=== PATIENT | male | born 1985 | race Caucasian/White ===

== ENCOUNTER 2020-06-11 19:07 | Emergency (ER) | payer OTHER ==
[~2020-06-11] VITALS: Ht 175.3 cm; Wt 129.5 kg
[2020-06-11 19:14] VITALS: BP 144/87
[2020-06-11] MEDS ORDERED: KETOROLAC 60 MG/2 ML VIAL. IM ONE (20:00)
[2020-06-11] MEDS ORDERED: ORPHENADRINE CITRATE 60 MG/2 ML VIAL. IM ONE (20:00)
--- NOTE | 2020-06-11 21:05 | RAD ---
CT lumbar spine without contrast. CT pelvis without contrast. PQRS statement: CT scans at this facility use dose reduction including either automated exposure cont rol, iterative reconstructions, and /or weight based radiation dosing via mA and kV modification when appropriate to reduce radiation dose to as low as reasonably achievable. HISTORY: Left low back pain, back injury. Lumbar spine findings: Lumbar vertebral body height and alignment intact. No fracture of the lumbar s pine. No spondylolysis defect. Paraspinal tissues unremarkable. Disc disease described below. T11-T12: Disc osteophyte with mild/moderate spinal canal stenosis. T12-L1: Unremarkable. L1-L2 through L3-L4: Unremarkable. L4-L5: Posterior disc height loss, disc osteophyte and large broad-based disc protrusion likely contr ibutes to severe spinal canal stenosis and left lateral recess stenosis, and severe left greater than right neural foraminal stenoses. L5-S1: Posterior disc height loss, vacuum disc, disc osteophyte, broad-based disc protrusion may cont ribute to spinal canal stenosis and left lateral recess stenosis. Moderate to severe neural foraminal stenoses. Lumbar spine impression: No acute osseous injury of the lumbar spine. Lumbar disc disease as described above. Pelvis findings: No fracture or dislocation of the pelvis. Mild osteoarthritis with bone spurring at the pubic symphysis. Mild hip osteoarthritic rise with spurring of the acetabulum. Soft tissues unrem arkable. No soft tissue edema or hematoma. No pelvic fluid. Pelvis impression: No acute osseous injury. Electronically signed by: Rui Rascon MD (06/11/2020 9:03 PM) [facility]
[2020-06-11] MEDS ORDERED: MELO15TA23 PO (21:26)
[2020-06-11] MEDS ORDERED: CYCL-331 PO (21:26)
--- NOTE | 2020-06-11 21:27 | PHYS DOC ---
Past History Past Medical History: Other Additional Past Medical Histor: vitamin d deficiency Past Surgical History: Other Additional Past Surgical Histo: multiple right knee surgeries Alcohol Use: Occasionally General Adult EDM: Chief Complaint: BACK INJURY HPI: HPI: Patient is a 34-year-old male with worsening left low back pain rating down his left leg. Patient states he was doing squats a couple weeks ago and had some off-and-on muscle spasms in his back. Patient states that today he was doing squats again and felt some soreness but when he went over to bend over and pick something up had intense pain in his back rating down his leg. Denies any bowel bladder incontinence, denies fevers, history of cancer in emergency family, weight loss. Patient states he did have a prior injury of a mild compression fr acture in his lumbar spine and degenerative disc disease. Review of Systems: Review of Systems: All other systems within normal limits except for as noted in the HPI Current Medications: Current Meds: Current Medications Medications (Trade) Dose Ordered Sig/Aysha Start Time Stop Time Status Last Admin Dose Admin Ketorolac Tromethamine (Toradol Im) 60 mg 1X ONCE 06/11/20 20:00 06/11/20 20:01 DC 06/11/20 20:22 60 MG Orphenadrine Citrate (Norflex) 60 mg 1X ONCE 06/11/20 20:00 06/11/20 20:01 DC 06/11/20 20:22 60 MG Allergies: Allergies: Allergies Coded Allergies Type Severity Reaction Last Updated Verified No Known Drug Allergies 06/11/20 No Physical Exam: PE: Constitutional: Well developed, well nourished, no acute distress, non-toxic appearance. [] HENT: Normocephalic, atraumatic, bilateral external ears normal, nose normal. [] Eyes: PERRLA, conjunctiva normal, no discharge. [] Neck: No rigidity, supple, no stridor. [] Cardiovascular: Regular rate and rhythm, brisk cap refill [] Lungs & Thorax: Non labored symmetric respirations, no tachypnea or respiratory distress [] Abdomen: Soft, nondistended. Skin: Warm, dry, no erythema, no rash. [] Back: Supine straight leg raise test negative on both sides. Extremities: No deformities, range of motion grossly intact, no lower extremity edema [] Neurologic: Alert and oriented X 3, no focal deficits noted., No sensory deficit [] Psychologic: Affect normal, judgement normal, mood normal. [] Current Patient Data: Vital Signs: Vital Signs Date Time Temp Pulse Resp B/P (MAP) Pulse Ox O2 Delivery O2 Flow Rate FiO2 06/11/20 19:14 97.9 120 24 144/87 (106) 95 Room Air EKG: EKG: [] Radiology/Procedures: Radiology/Procedures: CT lumbar spine without contrast. CT pelvis without contrast. PQRS statement: CT scans at this facility use dose reduction including either automated exposure control, iterative reconstructions, and /or weight based radiation dosing via mA and kV modification when appropriate to reduce radiation dose to as low as reasonably achievable. HISTORY: Left low back pain, back injury. Lumbar spine findings: Lumbar vertebral body height and alignment intact. No fracture of the lumbar spine. No spondylolysis defect. Paraspinal tissues unremarkable. Disc disease described below. T11-T12: Disc osteophyte with mild/moderate spinal canal stenosis. T12-L1: Unremarkable. L1-L2 through L3-L4: Unremarkable. L4-L5: Posterior disc height loss, disc osteophyte and large broad-based disc protrusion likely contributes to severe spinal canal stenosis and left lateral recess stenosis, and severe left greater than right neural foraminal stenoses. L5-S1: Posterior disc height loss, vacuum disc, disc osteophyte, broad-based disc protrusion may contribute to spinal canal stenosis and left lateral recess stenosis. Moderate to severe neural foraminal stenoses. Lumbar spine impression: No acute osseous injury of the lumbar spine. Lumbar disc disease as described above. Pelvis findings: No fracture or dislocation of the pelvis. Mild osteoarthritis with bone spurring at the pubic symphysis. Mild hip osteoarthritic rise with spu rring of the acetabulum. Soft tissues unremarkable. No soft tissue edema or hematoma. No pelvic fluid. Pelvis impression: No acute osseous injury.[] Heart Score: Risk Factors: Risk Factors: DM, Current or recent (<one month) smoker, HTN, HLP, family history of CAD, obesity. Risk Scores: Score 0 - 3: 2.5% MACE over next 6 weeks - Discharge Home Score 4 - 6: 20.3% MACE over next 6 weeks - Admit for Clinical Observation Score 7 - 10: 72.7% MACE over next 6 weeks - Early Invasive Strategies Course & Med Decision Making: Course & Med Decision Making Pertinent Labs and Imaging studies reviewed. (See chart for details) [] Brionna Disclaimer: Brionna Disclaimer: This electronic medical record was generated, in whole or in part, using a voice recognition dictation system. Departure Departure: Impression: Primary Impression: Low back pain with left-sided sciatica Disposition: 01 DC HOME SELF CARE/HOMELESS Condition: STABLE Referrals: [facility] Patient Instructions: Back Pain, Adult Scripts Meloxicam (MELOXICAM) 15 Mg Tablet 1 TAB PO DAILY PRN for PAIN for 10 Days, #10 TAB 0 Refills Prov: ZACH HARPER MD 06/11/20 Cyclobenzaprine Hcl (CYCLOBENZAPRINE HCL) 10 Mg Tablet 1 TAB PO TID PRN for MUSCLE PAIN for 5 Days, #15 TAB Prov: ZACH HARPER MD 06/11/20 ZACH HARPER MD Jun 11, 2020 21:27
== END 2020-06-11 21:35 | disposition home or self-care (01) ==
LOC: ER 19:07
DX: M54.42 Lumbago with sciatica, left side (principal); M62.830 Muscle spasm of back
CPT/HCPCS: 72131; 72192; 96372; 99285; J1885; J2360